=== PATIENT | male | born 1950 | race Caucasian/White ===

== ENCOUNTER → 2021-05-28 | Outpatient (CLI) | payer OTHER ==
[~2021-05-28] MED LIST: ARTHRITIS PAIN100 GM TOP; ASPIRIN EC325 M1 PO; DICLOFENAC-MIS1 EAC3 PO; EXCEDRIN CAPLE1 EACH PO; FENOFIBRIC ACI135 MG PO; FISH OIL 1,0001 EAC9 PO; FLUTICASONE PRO16 GM NASAL; GLUCOSAMINE CH1 EAC2 PO; LEVALBUTEROL TA15 GM INH; LOPRESSOR50 PO; MUCINEX600 MG PO; MULTI VITAMIN1 EACH PO; OMEPRAZOLE 20 M20 M1 PO; PROBIOTIC1 EAC7 PO; SIMVASTATIN40 MG PO
[2021-05-28 11:55] LABS: URINE BILIRUBIN NEGATIVE (Negative); URINE BLOOD NEGATIVE (Negative); URINE CLARITY CLEAR; URINE COLOR YELLOW; URINE GLUCOSE-RANDOM* NEGATIVE (Negative); URINE KETONES NEGATIVE (Negative); URINE LEUKOCYTES-REFLEX TRACE (Negative); URINE NITRITE-REFLEX NEGATIVE (Negative); URINE PROTEIN (DIPSTICK) NEGATIVE (Negative); URINE SPECIFIC GRAVITY 1.015 (1.005-1.035); URINE UROBILINOGEN 0.2 E.U./dl (0.2-1.0)
[2021-05-28 11:56] LABS: HEMATOCRIT 43.8 % (42.0-52.0); HEMOGLOBIN 14.6 gm/dL (14.0-18.0); MCH 31.2 pg (26.0-34.0); MCHC 33.4 g/dL (28.0-37.0); MCV 93.5 fL (80.0-100.0); RBC 4.68 mil/uL (4.50-6.00); RDW 13.1 % (10.5-14.5); WBC 5.5 thou/uL (4.0-11.0)
[2021-05-28 12:09] LABS: CALCIUM 9.2 mg/dL (8.5-10.1); POTASSIUM 4.5 mmol/L (3.5-5.1)
[2021-05-28 12:12] LABS: INR 1.05; PROTIME 11.4 Seconds (10.5-12.1)
--- NOTE | 2021-05-29 07:22 | EKG ---
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 : 1950 Requested By: Loy Eldridge Order Number: [id number] : Casimiro Lucero Measurements Intervals [place] Rate: 58 P: 10 OR: 188 QRS: -19 QRSD: 110 T: 2 QT: 446 QTc: 439 Interpretive Statements Sinus rhythm Multiform ventricular premature complexes Borderline left axis deviation No previous ECG available for comparison Electronically Signed On 05-29-2021 7:22:51 CDT by Casimiro Lucero [email or web address] <ELECTRONICALLY SIGNED> By: Casimiro Lucero MD, [facility] 05/29/21 0722 1130 1130 Casimiro Lucero MD, FACC /EPI
== END ==
LOC: PAC 10:35
PROVIDERS: ATTEND Orthopaedic Surgery
DX: Z01.818 Encounter for other preprocedural examination (principal); I49.3 Ventricular premature depolarization; M17.12 Unilateral primary osteoarthritis, left knee

== ENCOUNTER → 2021-07-28 | Outpatient (CLI) | payer OTHER ==
[~2021-07-28] MED LIST changes: +CALCIUM LACTAT100 MG PO; +CEPHALEXIN500 MG PO; +ELDERBERRY-VIT1 EACH PO
[2021-07-28 13:49] LABS: URINE BILIRUBIN NEGATIVE (Negative); URINE BLOOD NEGATIVE (Negative); URINE CLARITY CLEAR; URINE COLOR YELLOW; URINE GLUCOSE-RANDOM* NEGATIVE (Negative); URINE KETONES NEGATIVE (Negative); URINE LEUKOCYTES-REFLEX NEGATIVE (Negative); URINE NITRITE-REFLEX NEGATIVE (Negative); URINE PROTEIN (DIPSTICK) NEGATIVE (Negative); URINE SPECIFIC GRAVITY <= 1.005 (1.005-1.035); URINE UROBILINOGEN 0.2 E.U./dl (0.2-1.0)
[2021-07-28 13:51] LABS: HEMATOCRIT 43.7 % (42.0-52.0); MCH 31.8 pg (26.0-34.0); MCHC 34.2 g/dL (28.0-37.0); MCV 92.9 fL (80.0-100.0); RBC 4.7 mil/uL (4.50-6.00); RDW 13.4 % (10.5-14.5); WBC 4.7 thou/uL (4.0-11.0)
[2021-07-28 13:53] LABS: ALBUMIN 4.1 g/dL (3.4-5.0); CREATININE 0.9 mg/dL (0.7-1.3); POTASSIUM 4.3 mmol/L (3.5-5.1)
[2021-07-28 14:03] LABS: INR 1.04; PROTIME 11.3 Seconds (10.5-12.1)
== END ==
LOC: PAC 12:10
PROVIDERS: ATTEND Orthopaedic Surgery
DX: M17.12 Unilateral primary osteoarthritis, left knee (principal)

== ENCOUNTER 2021-07-31 07:15 | Day surgery (SDC) | payer OTHER ==
[~2021-07-31] VITALS: Ht 182.9 cm; Wt 101.6 kg
[2021-07-31 08:41] VITALS: BP 121/78
[2021-07-31 17:15] VITALS: BP 147/72
--- NOTE | 2021-07-31 18:06 | NUR ---
ADMITTED TO 4S S/P LEFT KNEEE REPLACEMENT. A/O X 4. RROM AIR. BEDREST. RIGHT WRIST PIV WITH 1/2 NS @ 100 MLS/HR. 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 PAIN LEVEL 3/10. @ BEDSIDE.
[2021-07-31 20:04] VITALS: BP 128/84
[2021-08-01 06:20] LABS: HEMATOCRIT 35.3 % (42.0-52.0); MCH 31.6 pg (26.0-34.0); MCHC 33.9 g/dL (28.0-37.0); MCV 93.3 fL (80.0-100.0); RBC 3.79 mil/uL (4.50-6.00); WBC 8.9 thou/uL (4.0-11.0)
[2021-08-01 06:21] LABS: CALCIUM 8.9 mg/dL (8.5-10.1); POTASSIUM 4.3 mmol/L (3.5-5.1)
[2021-08-01 07:16] VITALS: BP 142/71
--- NOTE | 2021-08-01 09:13 | NUR ---
Left knee, pod # 1. 71-year-old male, a & o x 4, pleasant and able to make his needs know. Cm visited with him at bedside. he had just worked with OT, up in recliner chair. He lives at home with his at [facility]. no steps or stairs. Have a ramp. He manages his own medication, has a walker, and still drives vehicle. Would like to have [facility] through [facility] and then going to outpatient rehab at [facility] [place]. Since this surgery was postponed because we go covid, i had time to look at outpt therapy facility to [facility]. Referral sent to [facility]. Will cont. following if needs arise.
--- NOTE | 2021-08-01 10:53 | O ---
[facility] [place] [address] OPERATIVE REPORT Name: BEVERLY BOLDEN Room #: 437-P [facility]..#: [id number] Admission: 07/31/21 Attend Phys: Loy Eldridge MD Discharge: Date of : 54 Report #: [id number] THIS REPORT FOR: cc: FAM - Family physician unknown FAM - Family physician unknown Loy Eldridge MD ~ DATE OF SERVICE: 07/31/2021 PREOPERATIVE DIAGNOSIS: Degenerative arthritis, left knee. POSTOPERATIVE DIAGNOSIS: Degenerative arthritis, left knee. PROCEDURE: Left total knee arthroplasty. SURGEON: Loy Eldridge MD INDICATIONS: This 71-year-old gentleman has had problems with progressive degenerative arthritis in both knees. He underwent right total knee replacement in the past with good result. He now has progressive left knee pain and mild varus deformity. He has decided to proceed with left total knee replacement. DESCRIPTION OF PROCEDURE: The patient was taken to the operating room where he was placed under general anesthesia. A femoral nerve block was also applied. The left knee and leg were meticulously prepped and draped. Prophylactic intravenous antibiotics were administered. An anterior longitudinal skin incision was made and the patella was reflected laterally. Marked degenerative change in the medial compartment and moderate degenerative change of the patella, lateral compartments were noted. The Olguin and NephPfenex knee system was utilized. Intramedullary guides were used on both the femur and the tibia. The femur was cut in 5 degrees of valgus and the tibia cut perpendicular to the long axis of the bone. Sufficient bone was resected to correct the mild varus malalignment and the mild preoperative flexion contracture. The femur was best suited for a size 5 femoral component. The tibia was best suited for a size 4 tibial component. An 11 mm cruciate retaining polyethylene insert was applied. This resulted in good alignment, range of motion and stability. The patellar surface was resected and a 35 mm patellar button fit nicely. Appropriate anchor holes were created. The patella seemed to be stable and tracked nicely. The trial components were removed. The surfaces were thoroughly irrigated and dried. The intramedullary canal was blocked with a bone block on both the femoral and tibial sides. Methyl methacrylate cement was mixed and injected into the porous surface of the proximal tibia. The Olguin and Nephew size 4 Legion tibial baseplate was applied. It seated nicely and appeared to be secure. Excess cement was removed around its margin. An 11 mm polyethylene cruciate retaining spacer was then applied. This seated nicely and appeared to be secure. A Olguin and Nephew left porous Legion femoral component was then [address] [address] OPERATIVE REPORT Name: BEVERLY BOLDEN Room #: 437-P REG [facility] M.R.#: [id number] Admission: 07/31/21 Attend Phys: Loy Eldridge MD Discharge: Date of : 54 Report #: [id number] impacted on the distal femur. It seated nicely and appeared to be secure. A 35 mm patellar button was cemented into place using appropriate anchor holes and cement. This was secured with a cement clamp until the cement had hardened. Range of motion, alignment and stability were once again assessed and felt to be satisfactory. The wound was then copiously irrigated. A single Hemovac was left in the wound exiting through a separate stab incision. The fascia was closed with multiple #1 Vicryl sutures. The subcutaneous tissues were closed with 0 Monocryl. Skin was closed with skin norma. A sterile dressing was applied. The patient was awakened and returned to recovery room in good condition. <ELECTRONICALLY SIGNED> By: Loy Eldridge MD 08/01/21 1053 1104 [id number] Loy Eldridge MD /nt
--- NOTE | 2021-08-01 11:46 | NUR ---
A/O X 4. ROOM AIR. STAND BY ASSIST WITH WALKER AND GAIT BELT. RIGHT WRIST PIV WITH 1/2 NS @ 100 MLS/HR. USES URINAL. LEFT KNEE GATO DRESSING, LEFT KNEE HEMOVAC 250 CC OUTPUT @ 0800. HEMOVAC WILL BE PULLED TODAY. PERCOCET AND NORCO GIVEN FOR LEFT KNEE PAIN 02/22. POLAR PACK ON LEFT KNEE. 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 AT BEDSIDE. REGULAR DIET. FULL CODE. PT AND OT WORKED WITH HIM TODAY. D/C TOMORROW PER DR. RUANO.
[2021-08-01 15:46] VITALS: BP 148/81
[2021-08-01 20:09] VITALS: BP 140/72
[2021-08-02 05:53] LABS: HEMATOCRIT 34.5 % (42.0-52.0); HEMOGLOBIN 11.9 gm/dL (14.0-18.0); MCH 32.3 pg (26.0-34.0); MCHC 34.6 g/dL (28.0-37.0); MCV 93.3 fL (80.0-100.0); RBC 3.7 mil/uL (4.50-6.00); RDW 13.6 % (10.5-14.5); WBC 8.3 thou/uL (4.0-11.0)
--- NOTE | 2021-08-02 06:21 | NUR ---
ASSUMED PT CARE THIS PM. PT IS ALERT AND ORIENTED X4. PT HAS GATO DRSG ON THE LEFT KNEE WHICH C/D/I WITH A POLAR CARE. PT C/O PAIN WHICH WAS MANAGED BY PRN PAIN MEDS. MEDS WERE GIVEN PER EMAR ORDERS. PT DID NOT VERBALIZE ANY OTHER CONCERNS. FALL PRECAUTIONS IN PLACE. WILL CONTINUE TO MONITOR.
[2021-08-02 08:31] VITALS: BP 151/77
[2021-08-02 11:13] VITALS: BP 151/77
--- NOTE | 2021-08-02 11:25 | NUR ---
ASSUMED PT CARE THIS AM. PT IS ALERT & ORIENTED X4. PT HAS IV SITE ON RHAND SALINE LOCKED. PT IS STAND BY WITH WALKER TO THE BATHROOM. PT IS ON ROOM AIR. PT HAS BILATERAL ANGIE HOSES THIGH HIGH, POLAR CARE, GATO DRESSING. INFORMED DR RUANO PT WAS ABLE TO WALK TO THE BATHROOM WITHOUT DIFFICULTIES. PT INSISTED TO LEAVE WITHOUT SEEN BY PT. REMOVED IV. EDUCATED AND INFORMED PT ABOUT DC INSTRUCTIONS. PT SIGNED DC FORMS. PT AT THE BEDSIDE. WILL WHEEL PT DOWN. PT DC TODAY.
--- NOTE | 2021-08-03 10:33 | D ---
[facility] [place] [address] DISCHARGE SUMMARY Name: BEVERLY BOLDEN Room #: DEP [facility]#: [id number] Admission: 07/31/21 Attend Phys: Loy Eldridge MD Discharge: 08/02/21 Date of : 54 Report #: [id number] THIS REPORT FOR: cc: FAM - Family physician unknown FAM - Family physician unknown Loy Eldridge MD ~ DATE OF SERVICE: 08/02/2021 FINAL DIAGNOSIS: Degenerative arthritis, left knee. OPERATIVE PROCEDURE: Left total knee arthroplasty. HISTORY: This 71-year-old gentleman has progressive degenerative arthritis in multiple joints. He underwent right total knee replacement in the past with good result. He returns now for left total knee arthroplasty. HOSPITAL COURSE: The patient was admitted and taken to the operating room on 07/31/2021, he underwent left total knee arthroplasty, which he tolerated well. Postoperatively, he did have rather significant pain and required narcotic pain medication. He was able to advance slowly with physical therapy. He is making some progress and today, seems sufficiently safe and functional and independent for hospital discharge. He has resumed a regular diet and is tolerating that well. He is managing with oral pain medication and an oral muscle relaxant. His discharge medications include fluticasone nasal spray b.i.d., metoprolol 50 mg b.i.d., omeprazole 20 mg daily, simvastatin 40 mg daily, Xarelto 10 mg daily, hydrocodone 10 mg every 4-6 hours as needed for pain, Flexeril 10 mg 3 times daily as needed for muscle spasm. He will continue regular diet and advance activities at home as comfort allows. He has declined home visiting physical therapy and plans to start outpatient physical therapy next week. I have asked him to call me if there are any problems or questions. I will otherwise plan to see him back in my office in 1 week for followup and in two weeks for suture removal. <ELECTRONICALLY SIGNED> By: Loy Eldridge MD 08/03/21 1033 [id number] [id number] Loy Eldridge MD /nt
== END 2021-08-02 11:56 | disposition home or self-care (01) ==
LOC: 4S 07:15 → OR 07:15 → TBA 08:00 → OR 08:57 → 4S 17:35 → OR 08-02 11:56
PROVIDERS: ATTEND Orthopaedic Surgery
DX: M17.12 Unilateral primary osteoarthritis, left knee (principal); M25.562 Pain in left knee; I10 Essential (primary) hypertension; E78.5 Hyperlipidemia, unspecified; I48.0 Paroxysmal atrial fibrillation; K21.9 Gastro-esophageal reflux disease without esophagitis; Z98.890 Other specified postprocedural states; Z79.899 Other long term (current) drug therapy; Z79.01 Long term (current) use of anticoagulants; Z85.828 Personal history of other malignant neoplasm of skin; Z90.49 Acquired absence of other specified parts of digestive tract; Z88.0 Allergy status to penicillin; Z88.8 Allergy status to other drugs, medicaments and biological substances
CPT/HCPCS: 10102; 50010; 50101; 50415; 50954; 51130; 51225; 51320; 51412; 52001; 52282; 56525; 57095; 57104; 57180; 58449; 62110; 62900; 64042; 70005